=== PATIENT | female | born 1995 | race African-American/Black ===

== ENCOUNTER 2021-03-25 12:10 | Emergency (ER) | payer OTHER | END 2021-03-25 14:53 | disposition home or self-care (01) | LOC: FER 12:10 | DX: R07.89 Other chest pain (principal); F17.290 Nicotine dependence, other tobacco product, uncomplicated; Z86.16 Personal history of COVID-19 | CPT/HCPCS: 93005; 96372; J1100; J1885 ==

== ENCOUNTER 2022-03-30 20:45 | Emergency (ER) | payer OTHER ==
[~2022-03-30 20:45] MED LIST: BACTRIM DS TAB1 EACH PO; NAPROXEN500 MG PO; NORCO 5-325 TA1 EACH PO
[2022-03-30 22:13] LABS: INFLUENZA A NAA NEGATIVE (NEGATIVE)
[2022-03-30 22:15] LABS: CORONAVIRUS 2019 SARS-COV-2 POSITIVE (NEGATIVE)
== END 2022-03-30 22:30 | disposition home or self-care (01) ==
LOC: FER 20:45
PROVIDERS: Emergency Medicine
DX: U07.1 COVID-19 (principal); Z28.310 Unvaccinated for COVID-19
CPT/HCPCS: 99283; U0002